=== PATIENT | male | born 1960 | race Caucasian/White ===

== ENCOUNTER 2021-09-22 20:26 | Emergency (ER) | payer SELFPAY ==
[2021-09-22 20:31] VITALS: BP 127/86; PULSE 102; RESP 20; TEMP 37.7; O2SAT 94; BMI 32.6
--- NOTE | 2021-09-22 20:48 | XRR_ITS ---
PROCEDURE INFORMATION: Exam: XR Chest Exam date and time: 09/22/2021 8:49 PM Age: 61 years old Clinical indication: Dyspnea; Additional info: SOB TECHNIQUE: Imaging protocol: XR of the chest. Views: 1 view. COMPARISON: No relevant prior studies available. FINDINGS: Lungs: Unremarkable. No consolidation. Pleural spaces: Unremarkable. No pleural effusion. No pneumothorax. Heart/Mediastinum: Unremarkable. No cardiomegaly. Diaphragm: Slight elevation of the left diaphragm. Bones/joints: Unremarkable. XR/XR chest 1V portable [id number] IMPRESSION: No acute finding.
[2021-09-22 21:03] VITALS: BP 140/87; PULSE 108; RESP 18; O2SAT 93
--- NOTE | 2021-09-22 21:05 | ECG_ITS ---
[facility] Test Date: 2021-09-22 Pat Name: Chris Loomis Department: Room: Gender: Male [employer] [place]: : 1960 Requested By: Chris Leo Order Number: [id number] Naa MD: Maddi Hall M.D. Measurements Intervals [place] Rate: 93 P: 45 MT: 124 QRS: -19 QRSD: 97 T: 50 QT: 314 QTc: 391 Interpretive Statements SINUS RHYTHM INCOMPLETE RIGHT BUNDLE BRANCH BLOCK [90+ ms QRS DURATION, TERMINAL R IN V1/V2, 40+ ms S IN I/aVL/V4/V5/V6] No previous ECG available for comparison Electronically Signed On 09-22-2021 22:00:34 CDT by Maddi Hall M.D. [id number]
--- NOTE | 2021-09-22 21:09 | ED_ITS ---
HPI - SOB/Dyspnea General: Chief Complaint: Shortness of Breath/Dyspnea Stated Complaint: SOB Time Seen by Provider: 09/22/21 20:37 Source: patient History of Present Illness: HPI Narrative: 61-year-old male who says he has been sick for 2 to 3 days. His also has bronchitis . They are traveling from [place] here. He has been running a mild temperature, coughing up clear sputum, and wheezing. He is also noted some swelling on and off to his lower extremities. He is having chest pain, but only associated with cough. MD elicited complaint: shortness of breath and chest pain Onset (ago): day(s) Timing: constant and progressively worsening Exacerbating factors: lying flat, exertion and deep breaths Relieving factors: nothing Known history of: other Associated symptoms: Reports chest congestion, chest pain and cough; Deny abdominal pain, extremity pain, hemoptysis, myalgias, nausea, palpitations, syncope or vomiting Treatment prior to arrival: none Review of Systems ENMT: Denies: throat pain Card: Reports: chest pain; Denies: palpitations or syncope Resp: Reports: dyspnea, wheezing and chest congestion; Denies: hemoptysis GI: Denies: abdominal pain, nausea or vomiting Musc: Denies: extremity pain Skin/Breast: Denies: rash Physical Exam Const: GENERAL APPEARANCE: cooperative and ill appearing (Mild) ORIENTATION/CONSCIOUSNESS: Yes awake, Yes oriented to person and Yes oriented to place HENMT: COMMON NORMALS: normocephalic, atraumatic and Normal external nose present HEAD & SCALP: normocephalic and atraumatic NOSE: Normal external nose present Eye: COMMON NORMALS: Equal, round and reactive pupils present and EOMs intact bilaterally PUPIL: Yes Equal, round and reactive pupils present Neck/C-Spine: GENERAL: Yes trachea midline Chest: COMMONS NORMALS: normal inspection of the chest Resp: EFFORT & INSPECTION: Yes tachypneic, Yes labored (Mildly), Yes Actively coughing and Yes uses accessory muscles AUSCULTATION: rales and wheezes Cardio: COMMON NORMALS: regular rhythm RATE: tachycardic RHYTHM: regular rhythm GI: COMMON NORMALS: Normal to inspection, nondistended, normoactive bowel sounds present Extremity: GENERAL: Yes edema (1+) Neuro: MARCELINA COMA SCALE: document GCS findings [place] coma scale eye opening: Spontaneous Marcelina coma scale verbal response: Orientated Marcelina coma scale motor response: Obey commands [place] coma scale total score: 15 SENSORIUM/ORIENTATION: Yes oriented to person and Yes oriented to place Course Vital Signs: Vital signs: Vital Signs Temperature 99.8 F H 09/22/21 20:31 Pulse Rate 98 09/22/21 22:05 Respiratory Rate 17 09/22/21 22:05 Blood Pressure 133/82 09/22/21 22:05 Pulse Oximetry 90 09/22/21 22:05 MDM - SOB/Dyspnea Medical Decision Making Oxygen saturations been 88 to 92% on room air. He is feeling much better after DuoNeb treatment, Solu-Medrol, and Lasix. He has diuresed quite a bit. His white blood cell count is 12.6. CBC otherwise normal. BMP is essentially no rmal. Creatinine is 0.8. Troponin is 9 at baseline. D-dimer is negative. Swabs for flu and COVID are negative as well. Chest x-ray does not reveal an infiltrate. He was given the option for admission. He would really like to go home. We walked him in the ER, and saturations never fell below 88%. He will be discharged with albuterol, Medrol Dosepak, and coverage with doxycycline. Lab Data : 09/22/21 21:46 09/22/21 21:46 Labs/Radiology: Radiology Impressions Chest X-Ray 09/22/21 20:48 IMPRESSION: No acute finding. Laboratory Results WBC 12.6 10^3/uL (4.0-10.0) H 09/22/21 21:46 RBC 4.36 10^6/uL (4.1-5.3) 09/22/21 21:46 Hgb 14.3 g/dL (11.7-16.6) 09/22/21 21:46 Hct 41.9 % (42.0-52.0) L 09/22/21 21:46 MCV 96.1 fl (80-94) H 09/22/21 21:46 MCH 32.8 pg (28.0-34.0) 09/22/21 21:46 MCHC 34.1 g/dL (30.0-36.0) 09/22/21 21:46 RDW 11.7 % (12.1-15.1) L 09/22/21 21:46 Plt Count 229 10^3/cmm (130-400) 09/22/21 21:46 MPV 10.6 fL (7.4-10.4) H 09/22/21 21:46 Neut % (Auto) 80.9 % 09/22/21 21:46 Lymph % (Auto) 6.6 % 09/22/21 21:46 [place] % (Auto) 8.8 % 09/22/21 21:46 Eos % (Auto) 2.7 % 09/22/21 21:46 Baso % (Auto) 0.8 % 09/22/21 21:46 Neut # (Auto) 10.21 10^3/uL (1.8-7.7) H 09/22/21 21:46 Lymph # (Auto) 0.8 10^3/uL (0.8-4.8) 09/22/21 21:46 [place] # (Auto) 1.1 10^3/uL (0.2-0.9) H 09/22/21 21:46 Eos # (Auto) 0.3 10^3/uL (0.0-0.8) 09/22/21 21:46 Baso # (Auto) 0.1 10^3/uL (0.0-0.1) 09/22/21 21:46 Nucleated RBC % (auto) 0 % 09/22/21 21:46 Nucleated RBCs # 0.0 /100WBC 09/22/21 21:46 D-Dimer 0.29 ug/mIFEU (0-0.59) 09/22/21 22:57 Sodium 136 mmol/L (136-145) 09/22/21 21:46 Potassium 3.8 mmol/L (3.5-5.1) 09/22/21 21:46 Chloride 101 mmol/L (98-107) 09/22/21 21:46 Carbon Dioxide 22 mmol/L (22-29) 09/22/21 21:46 Anion Gap 16.8 (5-19) 09/22/21 21:46 BUN 17 mg/dL (8-23) 09/22/21 21:46 Creatinine 0.8 mg/dL (0.7-1.2) 09/22/21 21:46 GFR Calculation 98.3 mL/min (90-130) 09/22/21 21:46 Glucose 120 mg/dL (65-115) H 09/22/21 21:46 Calculated Osmolality 285 mOsm/kg (285-295) 09/22/21 21:46 Lactic Acid 1.1 mmol/L (0.5-2.2) 09/22/21 21:46 Calcium 9.2 mg/dL (8.5-10.5) 09/22/21 21:46 Total Bilirubin 0.3 mg/dL (0.15-1.2) 09/22/21 21:46 AST 21 U/L (0-40) 09/22/21 21:46 ALT 25 U/L (0-41) 09/22/21 21:46 Alkaline Phosphatase 60 IU/L (40-130) 09/22/21 21:46 Troponin T Baseline 9 ng/L (0-15) 09/22/21 21:46 C-Reactive Protein 31.5 mg/L (0.0-4.9) H 09/22/21 21:46 NT-Pro-B Natriuret Pep 66 pg/mL (0-125) 09/22/21 21:46 Total Protein 7.3 g/dL (6.6-8.7) 09/22/21 21:46 Albumin 4.3 g/dL (3.5-5.2) 09/22/21 21:46 Globulin 3.0 g/dL (1.3-4.6) 09/22/21 21:46 Procalcitonin 0.08 ng/mL (0-0.5) 09/22/21 21:46 Influenza Type A Ag Negative (Negative) 09/22/21 21:54 Influenza Type B Ag Negative (Negative) 09/22/21 21:54 SARS-CoV-2 Ag (Rapid) Negative (Negative) 09/22/21 21:54 Discharge Plan Discharge Patient Disposition: Home Clinical Impression: Bronchitis with acute wheezing Condition: Stable Prescriptions: New Medrol (Mat) 4 mg tablets,dose pack See Rx Instructions .ROUTE .COMPLEX Qty: 21 0RF Rx Instructions: orally per package directions albuterol sulfate 90 mcg/actuation HFA aerosol inhaler 2 inh INHALATION Q4H PRN (Reason: shortness of breath or wheezing) Qty: 6.7 1RF doxycycline hyclate 100 mg capsule 100 mg PO BID 7 Days Qty: 14 0RF Discharge Orders: Discharge ED (Routine); Ordered 09/22/21 Ordered By: Chris Jean Discharge Diet: Advance as tolerated Discharge Activity: Increase activity as tolerated Activity Restrictions/Additional Instructions: Use the inhaler prescribed every 4 hours while awake for the next 48 hours, then as needed. Other medications as directed. Return for worsening shortness of breath, fever greater than 100 despite 2-3 doses of antibiotics, worsening chest discomfort, any other concerning symptoms. Coding Level of Care Code ED [place] [facility] for Tessa Fwd Exam Comprehensive
[2021-09-22 21:17] VITALS: PULSE 97; RESP 18; O2SAT 93
[2021-09-22] MEDS: ipratropium-albuterol 3 mL Neb INHALATION (21:21)
[2021-09-22 21:53] LABS: Basophils # 0.1 10^3/uL (0.0-0.1); Basophils % 0.8 %; Eosinophils # 0.3 10^3/uL (0.0-0.8); Eosinophils % 2.7 %; Hematocrit 41.9 % (42.0-52.0); Hemoglobin 14.3 g/dL (11.7-16.6); Lymphocytes # 0.8 10^3/uL (0.8-4.8); Lymphocytes % 6.6 %; Mean Corpuscular HGB Conc 34.1 g/dL (30.0-36.0); Mean Corpuscular Hemoglobin 32.8 pg (28.0-34.0); Mean Corpuscular Volume 96.1 fl (80-94); Mean Platelet Volume 10.6 fL (7.4-10.4); Monocytes # 1.1 10^3/uL (0.2-0.9); Monocytes % 8.8 %; Neutrophils # 10.21 10^3/uL (1.8-7.7); Neutrophils % 80.9 %; Nucleated Red Blood Cells % 0 %; Platelet Count 229 10^3/cmm (130-400); Red Blood Count 4.36 10^6/uL (4.1-5.3); Red Cell Distribution Width 11.7 % (12.1-15.1); White Blood Count 12.6 10^3/uL (4.0-10.0)
[2021-09-22] MEDS: FUROsemide 10 mg/mL SDV 10mL 60 MG IVP (22:03)
[2021-09-22 22:05] VITALS: BP 133/82; PULSE 98; RESP 17; O2SAT 90
[2021-09-22 22:10] LABS: Troponin(5th) Baseline 9 ng/L (0-15)
[2021-09-22 22:11] LABS: Lactic Sepsis W/Reflex 1.1 mmol/L (0.5-2.2)
[2021-09-22 22:20] LABS: NT Pro B Type Natriuretic Pept 66 pg/mL (0-125); Procalcitonin 0.08 ng/mL (0-0.5)
[2021-09-22 22:27] LABS: Influenza A by IFA Negative (Negative); SARS Covid-2 Antigen Negative (Negative)
[2021-09-22 22:28] LABS: Influenza B by IFA Negative (Negative)
[2021-09-22 22:31] LABS: Alanine Aminotransferase 25 U/L (0-41); Albumin Level 4.3 g/dL (3.5-5.2); Alkaline Phosphatase 60 IU/L (40-130); Anion Gap 16.8 (5-19); Aspartate Amino Transferase 21 U/L (0-40); Blood Urea Nitrogen 17 mg/dL (8-23); C Reactive Protein 31.5 mg/L (0.0-4.9); Calcium 9.2 mg/dL (8.5-10.5); Carbon Dioxide 22 mmol/L (22-29); Chloride 101 mmol/L (98-107); Glomerular Filtration Rate 98.3 mL/min (90-130); Glucose 120 mg/dL (65-115); Osmolality Calculated 285 mOsm/kg (285-295); Potassium 3.8 mmol/L (3.5-5.1); Sodium 136 mmol/L (136-145); Total Bilirubin 0.3 mg/dL (0.15-1.2); Total Protein 7.3 g/dL (6.6-8.7)
--- NOTE | 2021-09-22 23:05 | ECG_ITS ---
[facility] Test Date: 2021-09-22 Pat Name: Chris Loomis Department: Room: Gender: Male [place] [place]: : 1960 Requested By: Chris Leo Order Number: [id number] Naa MD: Maddi Hall M.D. Measurements Intervals [place] Rate: 88 P: 48 [place]: 149 QRS: -19 QRSD: 111 T: 36 QT: 329 QTc: 398 Interpretive Statements SINUS RHYTHM WITH OCCASIONAL VENTRICULAR PREMATURE COMPLEXES MODERATE INTRAVENTRICULAR CONDUCTION DELAY [110+ ms QRS DURATION] Compared to ECG 09/22/2021 21:12:15 Ventricular premature complex(es) now present Intraventricular conduction delay now present Incomplete right bundle-branch block no longer present Electronically Signed On 09-23-2021 22:47:46 CDT by Maddi Hall M.D. [id number]
[2021-09-22 23:17] LABS: D Dimer 0.29 ug/mIFEU (0-0.59)
[2021-09-23 00:13] VITALS: BP 158/99; PULSE 90; RESP 18; O2SAT 90
[2021-09-23 00:19] LABS: Troponin 5 2HR 11.16 ng/L (0-15)
== END 2021-09-23 00:14 | disposition home or self-care (01) ==
PROVIDERS: Emergency Provider Emergency Medicine
DX: J40 Bronchitis, not specified as acute or chronic (principal); R06.2 Wheezing
CPT/HCPCS: 71045; 80053; 83605; 83880; 84145; 84484; 85025; 85378; 86140; 87040; 87070; 87205; 87426; 87804; 93005; 94640; 96374; 96375; 99284; J1940; J2930